=== PATIENT | male | born 1940 | race Hispanic/Latino ===

== ENCOUNTER 2017-08-24 09:53 | Day surgery (SDC) | payer MEDICARE, OTHER ==
[2017-08-12 10:19] VITALS: BMI 32.8
[2017-08-24] MEDS ORDERED: Propofol 10 mg/ml Inj (20 ML) ONE (12:09)
[2017-08-24] MEDS ORDERED: Lactated Ringer's 1,000 ML IV SCH (12:15)
[2017-08-24 15:04] VITALS: PULSE 52; RESP 16; TEMP 97.5; O2SAT 98
[2017-08-24 15:05] VITALS: BP 181/87
== END 2017-08-24 15:46 | disposition home or self-care (01) ==
LOC: ENDO 09:53
PROVIDERS: ATTEND Internal Medicine Gastroenterology
DX: K29.50 Unspecified chronic gastritis without bleeding (principal); K22.70 Barrett's esophagus without dysplasia; D12.2 Benign neoplasm of ascending colon; D12.0 Benign neoplasm of cecum; D12.4 Benign neoplasm of descending colon; D12.5 Benign neoplasm of sigmoid colon; K57.30 Diverticulosis of large intestine without perforation or abscess without bleeding; K63.5 Polyp of colon; K64.8 Other hemorrhoids; K92.2 Gastrointestinal hemorrhage, unspecified
CPT/HCPCS: 43239; 45380; 45381; 45385; 88305; 88312; 88342; J2001; J2704; J3010; J7030; J7040; J7120